=== PATIENT | female | born 1970 | race Caucasian/White ===

== ENCOUNTER 2022-12-17 13:57 | Emergency (ER) | payer OTHER ==
[~2022-12-17] VITALS: Ht 162.6 cm; Wt 68.2 kg
[~2022-12-17 13:57] MED LIST: CITA-107 PO; CLON0.1T13 PO; IBUP-1492 PO
[2022-12-17 14:02] VITALS: TEMP 98.8
[2022-12-17] MEDS ORDERED: HYDR25TA PO (14:06)
[2022-12-17] MEDS ORDERED: LISI40TA9 PO (14:06)
[2022-12-17] MEDS ORDERED: HYDR25TA2 PO (14:06)
[2022-12-17] MEDS ORDERED: AMLO10TA55 PO (14:06)
[2022-12-17] MEDS ORDERED: ACETAMINOPHEN 325 MG TABLET PO ONE (14:30)
[2022-12-17 14:59] LABS: BASOPHILS % (AUTO) 0.6 % (0.0-2.0); EOSINOPHILS % (AUTO) 1.9 % (1.0-6.0); HEMATOCRIT 42.8 % (36-46); LYMPHOCYTES # (AUTO) 1.7 K/uL (1.0-4.8); LYMPHOCYTES % (AUTO) 26.2 % (22.0-44.0); MEAN CORPUSCULAR HEMOGLOBIN 30.9 pg (26.0-34.0); MEAN CORPUSCULAR VOLUME 88 fL (80-100); MONOCYTES # (AUTO) 0.6 K/uL (0.1-1.0); MONOCYTES % (AUTO) 8.9 % (2.0-9.0); NEUTROPHILS % (AUTO) 62.4 % (40.0-70.0); PLATELET COUNT (AUTO) 173 K/uL (150-450); RED BLOOD CELL COUNT(AUTO) 4.85 MIL/uL (4.00-5.20)
[2022-12-17 15:09] LABS: CALCIUM, TOTAL 9.2 mg/dL (8.8-10.5); CREATININE 1.11 mg/dL (0.60-1.30); POTASSIUM 3.3 mmol/L (3.5-5.1)
[2022-12-17 15:35] LABS: ALBUMIN 3.9 g/dL (3.4-5.0); BILIRUBIN,TOTAL 0.6 mg/dL (0.1-1.0); TOTAL PROTEIN, SERUM 7.6 g/dL (6.4-8.2)
[2022-12-17 16:18] VITALS: BP 130/52; PULSE 66; RESP 18
== END 2022-12-17 16:21 | disposition home or self-care (01) ==
LOC: EMS 14:03
DX: R07.9 Chest pain, unspecified (principal); I10 Essential (primary) hypertension
CPT/HCPCS: 71045; 80053; 82550; 83880; 84484; 85025; 93005; 99285; 36415-L1; 36415-TC

== ENCOUNTER 2023-02-09 13:53 | Emergency (ER) | payer OTHER ==
[~2023-02-09] VITALS: Ht 154.9 cm; Wt 68.2 kg
[~2023-02-09 13:53] MED LIST changes: +AMLO10TA55 PO; -CITA-107 PO; -CLON0.1T13 PO; +HYDR25TA PO; +LISI40TA9 PO
[2023-02-09] MEDS ORDERED: CLON0.1T PO (14:11)
[2023-02-09] MEDS ORDERED: HYDR25TA2 PO (14:11)
[2023-02-09 14:12] VITALS: TEMP 98.2
[2023-02-09] MEDS ORDERED: LIDOCAINE 5% TRANSDERMAL PATCH TD ONE (17:30)
[2023-02-09] MEDS ORDERED: KETOROLAC TROMETHAMINE 30 MG/ML VIAL IM ONE (17:30)
[2023-02-09 19:49] VITALS: BP 134/96; PULSE 84; RESP 18
== END 2023-02-09 20:13 | disposition home or self-care (01) ==
LOC: EMS 14:19
DX: M54.50 Low back pain, unspecified (principal); I10 Essential (primary) hypertension; Z79.899 Other long term (current) drug therapy; Z90.49 Acquired absence of other specified parts of digestive tract
CPT/HCPCS: 99283; 72100; 96372; J1885

== ENCOUNTER 2025-01-04 21:00 | Emergency (ER) | payer MEDICAID, OTHER ==
[~2025-01-04] VITALS: Ht 167.6 cm; Wt 81.8 kg
[~2025-01-04 21:00] MED LIST changes: +CLON0.1T PO; +HYDR25TA2 PO; +LISI-1024 PO; -LISI40TA9 PO
[2025-01-04 21:21] VITALS: TEMP 97.9
[2025-01-05 00:26] LABS: PLATELET COUNT (AUTO) 169 K/uL (150-450); RED BLOOD CELL COUNT(AUTO) 5.11 MIL/uL (4.00-5.20); RED CELL DISTRIBUTION WIDTH 14.1 % (11.5-14.5); WHITE BLOOD COUNT (AUTO) 7.0 K/uL (4.5-11.0)
[2025-01-05 00:28] LABS: CALCIUM, TOTAL 8.9 mg/dL (8.8-10.5); CREATININE 0.70 mg/dL (0.60-1.30); GLOMERULAR FILTR. RATE CALC > 60 mL/min (>60); GLUCOSE,RANDOM 104 mg/dL (70-110); SODIUM SERUM 144 mmol/L (136-145); UREA NITROGEN, BLOOD 22 mg/dL (7-18)
[2025-01-05 00:37] LABS: TROPONIN I-HIGH SENSITIVITY 8 ng/L (<51)
[2025-01-05 01:10] LABS: APPEARANCE,URINE CLEAR (CLEAR); GLUCOSE, URINE (UA) NEGATIVE (NEGATIVE); LEUKOCYTE ESTERASE ,URINE NEGATIVE (NEGATIVE); NITRATE,URINE NEGATIVE (NEGATIVE); OCCULT BLOOD,URINE NEGATIVE (NEGATIVE); SPECIFIC GRAVITIY, URINE 1.016 (1.003-1.030)
[2025-01-05 01:13] VITALS: BP 183/110; PULSE 78; RESP 26; O2SAT 98
== END 2025-01-05 02:45 | disposition home or self-care (01) ==
LOC: EMS 21:01
DX: I16.0 Hypertensive urgency (principal); I10 Essential (primary) hypertension; R51.9 Headache, unspecified; Z90.49 Acquired absence of other specified parts of digestive tract; Z79.899 Other long term (current) drug therapy
CPT/HCPCS: 71045; 80048; 81003; 83880; 84484; 85025; 93005; 96374; 99291; J0360; 36415-L1; 36415-TC